=== PATIENT | female | born 1995 | race African-American/Black ===

== ENCOUNTER 2021-04-13 22:20 | Emergency (ER) | payer OTHER, SELFPAY ==
--- NOTE | ~2021-04-13 | XR_ITS ---
XR foot LT min 3V DATE: 04/13/2021 23:57 INDICATION: Patient dropped a weight on her foot and tonight. Left foot pain. TECHNIQUE: 4 views COMPARISON: None FINDINGS: No fracture or dislocation, periosteal reaction or bone destruction. Joint spaces are prese rved. IMPRESSION: Negative Reviewed, dictated and finalized at location A. K CARRIER IMPRESSION: Negative
--- NOTE | ~2021-04-13 | XR_ITS ---
XR ankle LT min 3V DATE: 04/13/2021 23:57 INDICATION: Patient dropped a weight on her foot and tract. Left ankle and foot injury TECHNIQUE: 4 views of left ankle COMPARISON: None FINDINGS: No fracture or dislocation of the ankle or disruption of the ankle mortise. IMPRESSION: Negative Reviewed, dictated and finalized at location A. A P MANAGER IMPRESSION: Negative
[2021-04-13 22:25] VITALS: BP 124/70; PULSE 77; RESP 16; TEMP 36.9; O2SAT 100
--- NOTE | 2021-04-14 00:23 | ED.LOWEXIN ---
HPI - Extremity Injury (Lower) General Chief Complaint: Extremity Injury, Lower Stated Complaint: twisted left ankle Time Seen by Provider: 04/14/21 00:17 Source: patient Mode of arrival: ambulatory Limitations: no limitations History of Present Illness HPI Narrative: 25-year-old otherwise healthy here with complaints of left foot pain.. Patient states that she was lifting weights, drop 20 pound weight on her left foot. She is able to ambulate but with pain. Otherwise no other injuries. complaint: foot injury Onset (ago): hour(s) (2) Place: other (At the gym) Severity: mild Relieving factors: nothing Exacerbating factors: nothing Context: direct blow Related Data Allergies Allergy/AdvReac Type Severity Reaction Status Date / Time No Known Allergies Allergy Verified 04/13/21 22:27 Review of Systems Review of Systems: All systems reviewed & are unremarkable except as noted in HPI and below Constitutional: Constitutional: Reports no additional constitutional complaints Eyes: Eyes: Reports no additional eye complaints ENT: Reports system reviewed and no additional complaints, except as documented Cardiovascular: Cardiovascular: Reports no additional cardiovascular complaints Respiratory: Respiratory: Reports no additional respiratory complaints Gastrointestinal: Gastrointestinal: Reports no additional gastrointestinal complaints Musculoskeletal: Musculoskeletal: Reports as per HPI Neurologic: Reports system reviewed and no additional complaints, except as documented Exam Narrative: GENERAL: Well-appearing, well-nourished, and in no acute distress. HEAD: Normocephalic, atraumatic. EYES: PERRLA and EOMI. NECK: Supple. CHEST: Clear to auscultation. No respiratory distress. HEART: Regular rate and rhythm. No murmur heard. Normal peripheral pulses. EXTREMITIES: Normal range of motion. No edema examination of the left foot shows very minimal STS on the dorsum. SKIN: Warm, dry, no rash. NEURO: No focal deficits. Alert and oriented x3. PSYCH: Normal mood and affect. Course Course Emergency Course: informed pt about her Xray findings , advised ice pack and ibuprofen. Vital Signs Vital signs: Vital Signs Temperature 36.9 C 04/13/21 22:25 Pulse Rate 77 04/13/21 22:25 Respiratory Rate 16 04/13/21 22:25 Blood Pressure 124/70 04/13/21 22:25 Pulse Oximetry 100 04/13/21 22:25 Temperature 36.9 C 04/13/21 22:25 Pulse Rate 77 04/13/21 22:25 Respiratory Rate 16 04/13/21 22:25 Blood Pressure 124/70 04/13/21 22:25 Pulse Oximetry 100 04/13/21 22:25 MDM - Extremity Injury (Lower) Imaging Data Radiologist's impression: ITS Impressions Ankle X-Ray 04/13/21 23:59 IMPRESSION: Negative Foot X-Ray 04/13/21 23:59 IMPRESSION: Negative Discharge Plan Discharge Clinical Impression: Contusion of foot, left Qualifiers: Encounter type: initial encounter Qualified Code(s): S90.32XA - Contusion of left foot, initial encounter Patient Disposition: Home, Self-Care Condition: Stable Instructions: Antibiotic Form, Foot Contusion (ED) Additional Instructions: take Tylenol or Ibuprofen as needed for pain , ice. Follow-up/Referrals: Dashawn Hudson MD [Physician] - PHYSICIAN,[employer]ACHINE [employer]ENDER [Primary Care Provider] - Time of Disposition: 00:29
[2021-04-14 00:52] VITALS: BP 116/76; PULSE 78; RESP 18; O2SAT 99
== END 2021-04-14 00:53 | disposition home or self-care (01) ==
PROVIDERS: Emergency Provider Family Medicine
DX: S90.32XA Contusion of left foot, initial encounter (principal); W20.8XXA Other cause of strike by thrown, projected or falling object, initial encounter; Y93.B3 Activity, free weights
CPT/HCPCS: 73610; 73630; 99283